=== PATIENT | male | born 1975 | race Hispanic/Latino ===

== ENCOUNTER 2024-08-23 09:40 | Emergency (ER) | payer BC ==
[~2024-08-23] VITALS: Ht 185.4 cm; Wt 94.3 kg
--- NOTE | 2024-08-23 10:17 | ERN ---
ED Note History of Present Illness Stated Complaint: MULTIPLE BEE STINGS Chief Complaint: Allergic Reaction Time Seen by MD: 10:01 Dictation: PATIENT IS A 49-YEAR-OLD MALE BROUGHT TO THE EMERGENCY ROOM VIA EMS WITH COMPLAINTS OF MULTIPLE BEE STINGS TO HIS FACE IN HIS SCALP. HE STATES HE HAS A HISTORY OF BEE STING ALLERGIES., WAS GIVEN BENADRYL EMS PRIOR TO ARRIVAL VIA SALINE LOCK. CURRENTLY HE DOES HAVE A ANGIOEDEMA TO THE LOWER LIP, BILATERAL BREATH SOUNDS ARE CLEAR VOLUME OF VOICE IS CLEAR. Allergies: Coded Allergies: No Known Drug Allergies (Unverified Allergy, Unknown, 08/23/24) Past Medical History Past Medical History: Diabetes-Type II, High Cholesterol, Hypertension Surgical History: None RN Note Reviewed/Agreed w/PFSH: Yes Review of System Dictation CONSTITUTIONAL: NEGATIVE EXCEPT FOR HPI HEAD/FACE: NEGATIVE EXCEPT FOR HPI EENT: NEGATIVE EXCEPT FOR HPI ANGIOEDEMA OF LIPS RESPIRATORY: NEGATIVE EXCEPT FOR HPI GASTROINTESTINAL/ABDOMINAL: NEGATIVE EXCEPT FOR HPI GENITOURINARY: NEGATIVE EXCEPT FOR HPI MUSCULOSKELETAL: NEGATIVE EXCEPT FOR HPI INTEGUMENTARY: NEGATIVE EXCEPT FOR HPI MULTIPLE BEE STING SITES TO FACE AND O CCIPITAL SCALP. NEUROLOGICAL/PSYCH: NEGATIVE EXCEPT FOR HPI HEMATOLOGIC/LYMPHATIC: NEGATIVE EXCEPT FOR HPI ALL SYSTEMS NEGATIVE, EXCEPT NOTED ABOVE. 13 POINT REVIEW OF SYSTEMS ASSESSED AND ALL NEGATIVE EXCEPT FOR ABOVE. Initial Vital Sign VS Vital Signs Date Time Temp Pulse Resp B/P (MAP) Pulse Ox O2 Delivery O2 Flow Rate FiO2 08/23/24 09:42 98 18 147/94 97 Room Air 0 Physical Exam Dictation VITAL SIGNS REVIEWED GENERAL APPEARANCE: ALERT, ORIENTED X 3, NO ACUTE DISTRESS, WELL DEVELOPED, NOURISHED. HEAD AND FACE: NON-TRAUMATIC. EYES: PERRL, PINK CONJUNCTIVAS, EYELID NO TRAUMA, ANTERIOR CHAMBER WITH ARCUS SENILIS. EARS: PINNAS INTACT AND NO SIGNS OF TRAUMA OR ERYTHEMA EAR CANALS CLEAR AND NO DISCHARGE TM NO ERYTHEMA NOSE: NO DISCHARGE, NO BLEEDING. OROPHARYNX: MOUTH NORMAL, TONGUE PINK, ANGIOEDEMA OF LIPS, VOICE IS CLEAR NO STRIDOR PHARYNX CLEAR,NO ERYTHEMA, TONSILS NO EXUDATES, NO ABSCESSES NOTED, MUCOUS MEMBRANE MOIST NECK: SUPPLE, NON-TENDER, NO THYROMEGALY, NO MASSES, NO JVD, NO BRUITS BREAST:DEFERRED CHEST:NO TENDERNESS, NO CREPITUS, NO PARADOXICAL MOVEMENT, NO RETRACTIONS LUNGS:CLEAR, WELL-VENTILATED, SYMMETRIC, NO RALES, NO WHEEZING, NO RHONCHI, NO STRIDOR, GOOD BREATH SOUNDS BILATERALLY BILATERAL BREATH SOUNDS CLEAR HEART: REGULAR RATE, REGULAR RHYTHM, NO MURMUR, NO GALLOPS VASCULAR: NO PERIPHERAL EDEMA, ABDOMEN: SOFT, POSITIVE BOWEL SOUNDS, NONDISTENDED, NO GUARDING, NONTENDER, NO REBOUND, NO MASSES NO HEPATOMEGALY, NO SPLENOMEGALY, NO OLMEDO'S SIGN, NO HERNIAS. RECTAL: DEFERRED GENITAL: DEFERRED NEUROLOGICAL: NORMAL SPEECH, MOTOR FUNCTION INTACT, SENSORY FUNCTION INTACT MUSCULOSKELETAL: NECK NONTENDER, FULL RANGE OF MOTION, BACK NONTENDER, FULL RAN GE OF MOTION, EXTREMITIES: NONTENDER, FULL RANGE OF MOTION SKIN: COLOR PINK, DRY, NO TURGOR, NO RASH, NO LACERATIONS, NO ABRASIONS, NO CONTUSIONS. ALL BEE STING HAS BEEN REMOVED LYMPHATIC: DEFERRED Results (Laboratory/Radiology) Labs Reviewed?: Yes ED Course ED Course Orders Procedure Category Date Status Time Famotidine 20mg Tab PHA 08/23/24 Complete (Pepcid 20mg Tab) 10:30 Methylprednisolone PHA 08/23/24 Complete Succ 125mg (Solu-Medr 10:30 Current Medications Medications (Trade) Dose Ordered Sig/Erwin Route PRN Reason Start Time Stop Time Status Last Admin Dose Admin Famotidine (Pepcid 20mg Tab) 20 mg ONCE ONCE PO 08/23/24 10:30 08/23/24 10:31 DC 08/23/24 10:25 Methylprednisolone Sodium Succinate (Solu-medROL 125MG) 125 mg ONCE ONCE IVP 08/23/24 10:30 08/23/24 10:31 DC 08/23/24 10:25 Vital Signs Date Time Temp Pulse Resp B/P (MAP) Pulse Ox O2 Delivery O2 Flow Rate FiO2 08/23/24 09:42 98 18 147/94 97 Room Air 0 1040/NO LABS OR IMAGING INDICATED. PATIENT ALREADY HAVING SHOWN SIGNS OF RESOLVING ANGIOEDEMA OF LIPS, BILATERAL BREATH SOUNDS REMAINED CLEAR. HE DOES STATE HE HAS A PRIMARY CARE DOCTOR WHO CAN VISIT THIS AFTERNOON OR TOMORROW. ADDITIONALLY HIS TETANUS SHOT IS UP TO DATE. Medical Decision Making MDM MEDICAL DISCHARGE MAKING BASED ON EMPIRIC TREATMENT FOR BEE STINGS AND ANGIOEDEMA. PATIENT GIVEN BENADRYL PEPCID AND SOLU-MEDROL ANGIOEDEMA IS RESOLVING, BILATERAL BREATH SOUNDS ARE CLEAR VOICE IS CLEAR. NO RASH DX & DISP Disposition: Discharge Departure Impression: Primary Impression: Acute allergic reaction Additional Impression: Bee sting reaction Condition: Stable Scripts Prednisone (Prednisone) 20 Mg Tablet 1 TAB PO AD for 6 Days, #14 TAB 0 Refills TAKE 1 TAB BY MOUTH THREE TIMES PER DAY X3 DAYS, THEN TAKE 1 TAB BY MOUTH TWICE A DAY X2 DAYS, THEN TAKE 1 TAB BY MOUTH ONCE A DAY X1 DAY. TAKE WITH FOOD Prov: PRATEEK DAWSON NP 08/23/24 Diphenhydramine HCl (Benadryl) 50 Mg Cap 50 MG PO Q6H for itching/rash, #20 CAP 0 Refills Prov: PRATEEK DAWSON NP 08/23/24 Additional Instructions: FOLLOW-UP WITH PRIMARY CARE PROVIDER IN 1 TO 2 DAYS. TAKE MEDICATIONS DIRECTED HERE IN THE EMERGENCY ROOM. OKAY TO CONTINUE HOME MEDICATIONS UNLESS OTHERWISE DISCUSSED DURING YOUR VISIT IN THE EMERGENCY ROOM TODAY. RETURN TO YOUR NEAREST EMERGENCY ROOM IF SYMPTOMS WORSEN OR IF THERE IS NO IMPROVEMENT. CALL 911 IF YOU NEED IMMEDIATE ASSISTANCE. TAKE TYLENOL OR MOTRIN [id number] NEEDED AND IF NO CONTRAINDICATIONS ARE PRESENT. INCREASE ORAL HYDRATION. A WOUND CULTURE OR URINE CULTURE WAS ORDERED HERE IN THE EMERGENCY ROOM DEPARTMENT PLEASE FOLLOW-UP WITH PRIMARY CARE PROVIDER AND ADVISE THEM TO GET REPEAT PORTS FROM OUR FACILITY. IF YOU HAD ANY EDMUNDO WRAP/SPLINTS THAT WERE APPLIED HERE, PLEASE DO NOT REMOVE THEM UNTIL YOU SEE YOUR PRIMARY CARE OR SPECIALTY. TAKE BENADRYL 50 MG EVERY 6 HOURS FOR THREE MORE DOSES. TAKE PREDNISONE DIRECTED UNTIL GONE. FOLLOW UP WITH YOUR PRIMARY CARE DOCTOR TOMORROW. Referrals: SELF,REFERRAL (PCP) Time of Disposition: 10:43 I have reviewed the case, and I agree with, Diagnosis and Plan PRATEEK DAWSON NP Aug 23, 2024 10:17
[2024-08-23] MEDS: FAMOTIDINE 20MG TAB PO ONE (10:25)
[2024-08-23] MEDS: Solu-medROL 125MG VIAL IVP ONE (10:25)
[2024-08-23] MEDS ORDERED: PRED20TA3 PO (10:44)
[2024-08-23] MEDS ORDERED: DIPH50 PO (10:44)
[2024-08-23 10:47] VITALS: BP 134/89; PULSE 80; RESP 18; TEMP 98; O2SAT 97
== END 2024-08-23 10:53 | disposition home or self-care (01) ==
LOC: EDH 09:40
DX: T78.40XA Allergy, unspecified, initial encounter (principal); T63.441A Toxic effect of venom of bees, accidental (unintentional), initial encounter; E11.9 Type 2 diabetes mellitus without complications; E78.00 Pure hypercholesterolemia, unspecified; I10 Essential (primary) hypertension; Y92.89 Other specified places as the place of occurrence of the external cause
CPT/HCPCS: 99284; 96374; J2919